=== PATIENT | male | born 1975 | race Caucasian/White ===

== ENCOUNTER → 2020-08-13 | Outpatient (CLI) | payer OTHER | END | disposition home or self-care (01) | LOC: LABWHC1 16:33 | PROVIDERS: ATTEND Family Medicine | DX: Z20.822 Contact with and (suspected) exposure to COVID-19 (principal); R05 Cough | CPT/HCPCS: U0003; C9803; U0005 ==

== ENCOUNTER → 2020-09-13 | Outpatient (CLI) | payer OTHER ==
--- NOTE | 2020-09-13 15:40 | XR ---
MR spine HISTORY: Low back pain 3 views the lumbar spine Surgical clip present in the left upper quadrant. There is multilevel spondylosis. Loss of disc heigh t is present at intervertebral levels. Lumbar vertebral bodies show preserved height, alignment, and bone mineralization. Probable vacuum phenomenon present at L5-S1. Sclerosis is present in the posteri or elements of the lower lumbar spine. IMPRESSION: Degenerative disc disease and facet arthropathy.
--- NOTE | 2020-09-13 15:41 | XR ---
Left hip HISTORY: Left hip pain 2 views the left hip Bone mineralization, joint spaces and alignment are maintained. There are overlying artifacts. IMPRESSION: Normal left hip.
== END | disposition home or self-care (01) ==
LOC: RADXRMAIN 14:58
PROVIDERS: ATTEND Family Medicine
DX: M25.552 Pain in left hip (principal); M51.36 Other intervertebral disc degeneration, lumbar region
CPT/HCPCS: 72100; 73502

== ENCOUNTER → 2020-09-17 | Outpatient (CLI) | payer OTHER ==
--- NOTE | 2020-09-17 14:53 | XR ---
EXAMINATION TYPE: XR shoulder complete RT DATE OF EXAM: 09/17/2020 COMPARISON: NONE HISTORY: Pain TECHNIQUE: Three views are submitted. FINDINGS: The osseous structures are intact. There is no acute fracture or dislocation. The AC joint is maint ained. Chronic rib deformities are noted. Mild hypertrophic change of the AC joint. IMPRESSION: 1. Mild AC joint arthropathy..
== END | disposition home or self-care (01) ==
LOC: RADXRMAIN 14:25
PROVIDERS: ATTEND Nurse Practitioner Family
DX: M19.011 Primary osteoarthritis, right shoulder (principal)